=== PATIENT | female | born 1985 | race Caucasian/White ===

== ENCOUNTER 2017-03-18 18:40 | Emergency (ER) | payer OTHER ==
[~2017-03-18] VITALS: Ht 165.1 cm; Wt 77.0 kg
[~2017-03-18 18:40] MED LIST: DOCUSATE SODIU100 MG PO; ENDOCET 5-3251 EACH PO; FERROUS SULFAT325 MG PO; IBUPROFEN800 MG PO; NICOTINE PATCH1 EACH TD; PRENATAL VITAM1 EAC6 PO; TYLENOL REGULA325 MG PO; VITAMIN C500 M1 PO
[2017-03-18] MEDS ORDERED: DOXYCYCLINE MO100 MG PO (21:53)
[2017-03-18 22:12] VITALS: BP 138/89
== END 2017-03-18 22:16 | disposition home or self-care (01) ==
LOC: EME 18:40
PROC: 0H9EXZZ Drainage of Left Lower Arm Skin, External Approach (ICD-10-PCS; principal; 2017-03-18)
DX: L02.414 Cutaneous abscess of left upper limb (principal); F19.10 Other psychoactive substance abuse, uncomplicated; F17.200 Nicotine dependence, unspecified, uncomplicated
CPT/HCPCS: 99281; 99284

== ENCOUNTER 2017-03-20 14:45 | Emergency (ER) | payer OTHER ==
[~2017-03-20] VITALS: Ht 165.1 cm; Wt 76.6 kg
[~2017-03-20 14:45] MED LIST changes: +DOXYCYCLINE MO100 MG PO
[2017-03-20] MEDS ORDERED: BACTRIM,SEPT1 TABLET PO (15:04)
[2017-03-20 15:10] VITALS: BP 126/83
== END 2017-03-20 15:27 | disposition home or self-care (01) ==
LOC: EME 14:45
DX: Z48.01 Encounter for change or removal of surgical wound dressing (principal); L02.414 Cutaneous abscess of left upper limb; L03.114 Cellulitis of left upper limb
CPT/HCPCS: 99281; 99284

== ENCOUNTER 2017-03-22 16:02 | Emergency (ER) | payer SELFPAY ==
[~2017-03-22] VITALS: Ht 165.1 cm; Wt 74.4 kg
[~2017-03-22 16:02] MED LIST changes: +BACTRIM,SEPT1 TABLET PO
[2017-03-22 17:34] VITALS: BP 131/80
== END 2017-03-22 17:34 | disposition home or self-care (01) ==
LOC: EME 16:02
DX: L02.414 Cutaneous abscess of left upper limb (principal)
CPT/HCPCS: 99281; 99283

== ENCOUNTER 2017-10-08 18:58 | Emergency (ER) | payer SELFPAY ==
[~2017-10-08] VITALS: Ht 165.1 cm; Wt 75.3 kg
[2017-10-08 19:27] LABS: HEMATOCRIT 50.2 % (36.0-46.0); HEMOGLOBIN 17.3 G/DL (11.9-15.5); MCH 31.3 PG (29.0-34.0); MCHC 34.5 G/DL (30.0-36.0); MCV 90.8 FL (83-99); PLATELET COUNT 280 K/uL (156-360); RBC DIS.WIDTH-CV 12.3 % (11.8-14.6); RBC DIS.WIDTH-SD 40.9 % (39-53); RED BLOOD COUNT 5.53 M/uL (3.80-5.20); WHITE BLOOD COUNT 8.9 K/uL (4.1-10.2)
[2017-10-08 19:45] LABS: ALBUMIN 4.7 g/dL (3.2-4.8); CHLORIDE 101 mEq/L (99-109); POTASSIUM 4.4 mEq/L (3.7-5.4); SODIUM 137 mEq/L (136-147)
[2017-10-08 19:47] LABS: GLUCOSE 102 mg/dL (70-99)
[2017-10-08 19:48] LABS: TOTAL PROTEIN 8.1 g/dL (6.4-8.3)
[2017-10-08 19:49] LABS: TOTAL BILIRUBIN 1.5 mg/dL (0.0-1.0)
[2017-10-08 19:51] LABS: ALKALINE PHOSPHATASE 140 IU/L (3-129); GFR ESTIMATE (CALCULATED) > 59 mL/min/
[2017-10-08 19:52] LABS: UREA NITROGEN (BUN) 15 mg/dL (9-23)
[2017-10-08 19:53] LABS: AST (GOT) 28 IU/L (2-34)
[2017-10-08 19:54] LABS: ALT (GPT) 148 IU/L (3-49)
[2017-10-08 20:00] LABS: QUANTITATIVE HCG < 4.0 MIU/ML
[2017-10-08 20:28] LABS: APPEARANCE SL.HAZY ((CLEAR)); BILIRUBIN NEGATIVE; BLOOD NEGATIVE; GLUCOSE (STRIP) NEGATIVE; KETONES 5; LEUKOCYTES SMALL; NITRITE NEGATIVE; PROTEIN (STRIP) 30
[2017-10-08 21:06] LABS: BACTERIA RARE /HPF; COLOR AMBER ((YELLOW)); EPITHELIAL CELLS 2+ /HPF; MUCUS 2+ /LPF; RED BLOOD CELLS 0-5 /HPF (0-5); UCUL ADDED? YES
[2017-10-09] MEDS ORDERED: ZOFRAN ODT8 MG PO (02:17)
[2017-10-09 02:34] VITALS: BP 131/72
[2017-10-09 10:31] LABS: HEPATITIS B SURFACE ANTIGEN Nonreactive
[2017-10-09 10:33] LABS: ANTI-HEPATITIS A VIRUS (IGM) Nonreactive
[2017-10-09 10:35] LABS: ANTI-HEPATITIS B CORE (IGM) Nonreactive; HEPATITIS C ANTIBODY REACTIVE
== END 2017-10-09 02:38 | disposition home or self-care (01) ==
LOC: EME 18:58
PROVIDERS: Physician Assistant
DX: K75.9 Inflammatory liver disease, unspecified (principal); R74.8 Abnormal levels of other serum enzymes; F17.200 Nicotine dependence, unspecified, uncomplicated
CPT/HCPCS: 76705; 80053; 80074; 81003; 84702; 85027; 87086; 99281; 99284

== ENCOUNTER 2017-10-14 17:33 | Emergency (ER) | payer SELFPAY ==
[~2017-10-14] VITALS: Ht 165.1 cm; Wt 76.3 kg
[~2017-10-14 17:33] MED LIST changes: +ZOFRAN ODT8 MG PO
[2017-10-14] MEDS ORDERED: CLONIDINE HCL0.1 MG PO (19:36)
[2017-10-14] MEDS ORDERED: TRAZODONE HCL50 MG PO (19:36)
[2017-10-14] MEDS ORDERED: ZOFRAN ODT4 MG PO (19:36)
[2017-10-14 19:51] VITALS: BP 144/87
== END 2017-10-14 19:51 | disposition home or self-care (01) ==
LOC: EME 17:33
DX: F11.10 Opioid abuse, uncomplicated (principal); F17.200 Nicotine dependence, unspecified, uncomplicated
CPT/HCPCS: 99281; 99285